=== PATIENT | male | born 1980 | race Caucasian/White ===

== ENCOUNTER 2017-12-22 21:37 | Emergency (ER) | payer OTHER ==
[2017-12-22 21:37] VITALS: BMI 31.1
[2017-12-22 21:54] VITALS: TEMP 98.1
[2017-12-22 23:03] LABS: BASO # 0.02 K/mm3 (0.0-2.0); BASO % 0.4 % (0.0-3.0); EOS # 0.1 (0.0-0.7); EOS % 1.2 % (1.5-5.0); GRAN # 2.9 (1.4-6.5); GRAN % 55.8 % (50.0-68.0); HEMOGLOBIN 14.9 g/dL (14.0-18.0); LYMPH # 1.7 (1.2-3.4); LYMPH % 31.8 % (22.0-35.0); MEAN CELL VOLUME 88.3 fl (80.0-105.0); MEAN CORPUSCULAR HEMOGLOBIN 31.2 pg (25.0-35.0); MEAN CORPUSCULAR HGB CONC 35.3 g/dl (31.0-37.0); MEAN PLATELET VOLUME 10.1 fl (7.0-11.0); MONO # 0.6 (0.1-0.6); MONO % 10.8 % (1.0-6.0); RBC 4.78 10^6/uL (3.5-6.1); RED CELL DISTRIBUTION WIDTH 13.3 % (11.5-14.5); WHITE BLOOD COUNT 5.2 10^3/ul (4.5-11.0)
[2017-12-22 23:12] LABS: ALB/GLOB RATIO 1.5 (1.1-1.8); ALBUMIN 3.9 g/dL (3.0-4.8); ALT/SGPT 74 U/L (7-56); AST/SGOT 38 U/L (17-59); BLOOD UREA NITROGEN 14 mg/dL (7-21); CALCIUM 9.3 mg/dL (8.4-10.5); GFR AFRICAN-AMERICAN > 60; GFR NON-AFRICAN AMERICAN > 60
[2017-12-22 23:23] LABS: TROPONIN I < 0.01 ng/mL
--- NOTE | 2017-12-22 23:35 | ED PDOC ---
Arrival/HPI - General Chief Complaint: Chest Pain Time Seen by Provider: 12/22/17 22:46 Historian: Patient - History of Present Illness Narrative History of Present Illness (Text): 12/22/17 23:30 37 y/o M w/ no significant PMH presents to the emergency department complaining of chest pain that began earlier today. He describes the pain as originating from the right shoulder radiating down to the right side of the sternum. The patient admits to driving 2 hours from [place] back home today. He also reports intermittent dizziness, but denies any fever, chills, shortness of breath, abdominal pain, nausea, vomiting, diarrhea, urinary symptoms, back pain , neck pain, headache, or any other complaints. He denies taking any medications for his symptoms. 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 Past Medical History - Provider Review Nursing Documentation Reviewed: Yes - Travel History Have you recently traveled outside [place] w/in the past 3 mons?: No - Past History Past History: No Previous - Infectious Disease Hx of Infectious Diseases: None - Tetanus Immunization Tetanus Immunization: Up to Date - Past Medical History Past Medical History: No Previous - Neurological Hx Seizures: Yes - Psychiatric Hx Psychophysiologic Disorder: No Hx Anxiety: No Hx Bipolar Disorder: No Hx Depression: No Hx Emotional Abuse: No Hx Hallucinations: No Hx Panic Disorder: No Hx Post Traumatic Stress Disorder: No Hx Psychosis: No Hx Physical Abuse: No Hx Schizophrenia: No Hx Sexual Abuse: No Hx Substance Use: No - Surgical History Hx Appendectomy: Yes - Anesthesia Hx Anesthesia: Yes Hx Anesthesia Reactions: No Hx Malignant Hyperthermia: No - Suicidal Assessment Feels Threatened In Home Enviroment: No Family/Social History - Physician Review Nursing Documentation Reviewed: Yes Family/Social History: No Known Family HX Smoking Status: Never Smoked Hx Alcohol Use: No Hx Substance Use: No Hx Substance Use Treatment: No Allergies/Home Meds Allergies/Adverse Reactions: Allergies No Known Allergies Allergy (Verified 01/26/16 09:42) Home Medications: Home Meds Medication Instructions Recorded Confirmed No Known Home Med 12/22/17 12/22/17 Review of Systems - Physician Review All systems were reviewed & negative as marked: Yes - Review of Systems Constitutional: absent: Fevers, Other (Chills) Respiratory: absent: SOB Cardiovascular: Chest Pain Gastrointestinal: absent: Abdominal Pain, Diarrhea, Nausea, Vomiting Musculoskeletal: Myalgias. absent: Back Pain, Neck Pain Neurological: Dizziness. absent: Headache Physical Exam Vital Signs Reviewed: Yes Vital Signs Temp Pulse Resp BP Pulse Ox 12/23/17 01:15 72 22 134/68 96 12/22/17 22:54 72 21 136/70 97 12/22/17 21:54 98.1 F 70 16 142/88 97 Temperature: Afebrile Blood Pressure: Normal Pulse: Regular Respiratory Rate: Normal Appearance: Positive for: Well-Appearing, Non-Toxic, Comfortable Pain Distress: None Mental Status: Positive for: Alert and Oriented X 3 - Systems Exam Head: Present: Atraumatic, Normocephalic Pupils: Present: PERRL Extroacular Muscles: Present: EOMI Conjunctiva: Present: Normal Mouth: Present: Moist Mucous Membranes Neck: Present: Normal Range of Motion Respiratory/Chest: Present: Clear to Auscultation, Good Air Exchange. No: Respiratory Distress, Accessory Muscle Use, Tender to Palpation (No tenderness of the anterior chest wall to palpation) Cardiovascular: Present: Regular Rate and Rhythm, Normal S1, S2. No: Murmurs Abdomen: No: Tenderness, Distention, Peritoneal Signs Back: Present: Normal Inspection. No: Midline Tenderness, Paraspinal Tenderness Upper Extremity: Present: Normal Inspection. No: Cyanosis, Edema Lower Extremity: Present: Normal Inspection. No: Edema Neurological: Present: GCS=15, CN II-XII Intact, Speech Normal Skin: Present: Warm, Dry, Normal Color. No: Rashes Psychiatric: Present: Alert, Oriented x 3, Normal Insight, Normal Concentration Medical Decision Making ED Course and Treatment: 12/22/17 23:30 Impression: 37 year old male presents complaining of chest pain that began earlier today localized to the right shoulder which radiates down to the side of the chest. Patient also reports intermittent dizziness. HEART Score: 0 PERC Rule: Negative Differential Diagnosis Includes But is not Limited to: ACS PE Costochondritis Plan: -- Labs -- EKG -- Chest X-Ray -- Reassess and disposition Progress Notes: EKG Ordered, read & interpreted by ED provider Impression: NSR at [address] elevation. No T-Wave inversions. CXR Impression: Ordered, read & interpreted by ED provider Impression: No infilitrates or consolidations. No PTX. No cardiomegaly seen. 12/23/17 01:10 Labs reviewed. Troponin negative. On re-evaluation, patient feels better and is in no acute distress. I have discussed the results and plan with the patient, who expresses understanding. Patient in agreement with plan to be discharged home. Patient is stable for discharge. Patient was instructed to follow up with physician or return if symptoms worsen or new concerning symptoms arise. - Lab Interpretations Lab Results: 12/22/17 22:00 12/22/17 22:00 Lab Results 12/22/17 22:00: NT-Pro-B Natriuret Pep 15.0 12/22/17 22:00: Sodium 141, Potassium 3.8, Chloride 107, Carbon Dioxide 21, Anion Gap 16, BUN 14, Creatinine 0.8, Est GFR ( Amer) > 60, Est GFR (Non- Af Amer) > 60, Random Glucose 141 H, Calcium 9.3, Total Bilirubin 0.4, AST 38, ALT 74 H, Alkaline Phosphatase 72, Troponin I < 0.01, Total Protein 6.5, Albumin 3.9, Globulin 2.6, Albumin/Globulin Ratio 1.5 12/22/17 22:00: WBC 5.2 D, RBC 4.78, Hgb 14.9, Hct 42.2, MCV 88.3, MCH 31.2, MCHC 35.3, RDW 13.3, Plt Count 220, MPV 10.1, Gran % 55.8, Lymph % (Auto) 31.8, [place] % (Auto) 10.8 H, Eos % (Auto) 1.2 L, Baso % (Auto) 0.4, Gran # 2.90, Lymph # (Auto) 1.7, [place] # (Auto) 0.6, Eos # (Auto) 0.1, Baso # (Auto) 0.02 I have reviewed the lab results: Yes - RAD Interpretation Radiology Orders: 12/22/17 22:46 CHEST TWO VIEWS (PA/LAT) [RAD] Stat - EKG Interpretation Interpreted by ED Physician: Yes Type: 12 lead EKG - Medication Orders Current Medication Orders: Discontinued Medications Diazepam (Valium) 5 mg PO ONCE ONE PRN Reason: Protocol Stop: 12/23/17 00:24 Last Admin: 12/23/17 01:08 Dose: 5 mg Ketorolac Tromethamine (Toradol) 30 mg IVP STAT STA Stop: 12/23/17 00:22 Last Admin: 12/23/17 01:08 Dose: 30 mg MAR Pain Assessment Document 12/23/17 01:08 MANDIE (Rec: 12/23/17 01:08 [id number] Pain Reassessment Is this a pain reassessment? No Sleep Is patient sleeping during reassessment? No Presence of Pain Presence of Pain No Pain Scale Used Pain Scale Used Numeric Location Pain Location Body Site Chest Description Description Acute Intensity of Pain at present 7 Acceptable Level of Pain 0 Pain Behavior Rubbing Site Aggravating Factors ADL's IVP Administration Document 12/23/17 01:08 MANDIE (Rec: 12/23/17 01:08 [id number] Charges for Administration # of IVP Administrations 1 - Scribe Statement The provider has reviewed the documentation as recorded by the Scribe Pia Saba Provider Scribe Attestation: All medical record entries made by the Scribe were at my direction and personally dictated by me. I have reviewed the chart and agree that the record accurately reflects my personal performance of the history, physical exam, medical decision making, and the department course for this patient. I have also personally directed, reviewed, and agree with the discharge instructions and disposition. Disposition/Present on Arrival - Present on Arrival Any Indicators Present on Arrival: No History of DVT/PE: No History of Uncontrolled Diabetes: No Urinary Catheter: No History of Decub. Ulcer: No History Surgical Site Infection Following: None - Disposition Have Diagnosis and Disposition been Completed?: Yes Diagnosis: Musculoskeletal pain Disposition: HOME/ ROUTINE Disposition Time: 00:58 Patient Plan: Discharge Condition: STABLE Discharge Instructions (ExitCare): Muscle and Bone Pain (DC) Referrals: Hayder Belcher MD [Primary Care Provider] - Follow up with primary Forms: [employer] (Nepalese)
[2017-12-23 01:59] VITALS: PULSE 72
[2017-12-23 02:00] VITALS: BP 134/68; RESP 22; O2SAT 96
--- NOTE | 2017-12-23 10:25 | RAD ---
HISTORY: COMPARISON: 04/14/2016. TECHNIQUE: Chest PA and lateral FINDINGS: LINES AND TUBES: None. LUNG AND PLEURA: Low lung volumes may be related to poor inspiratory effort.No focal consolidation. No pleural effusion or pneumothorax. HEART AND MEDIASTINUM: The heart is not enlarged. The hilar and mediastinal contours are within normal limits. SKELETAL STRUCTURES: The bony structures are within normal limits for the patient's age. VISUALIZED UPPER ABDOMEN: Normal. OTHER FINDINGS: None. IMPRESSION: No active pulmonary disease.
--- NOTE | 2017-12-23 17:52 | CARD ---
APPROVED REPORT Date of service: 12/22/2017 EKG Measurement Heart [id number] <Conclusion> Normal sinus rhythm Voltage criteria for left ventricular hypertrophy Abnormal ECG
== END 2017-12-23 01:15 | disposition home or self-care (01) ==
LOC: ED 21:37
DX: M79.1 Myalgia (principal)
CPT/HCPCS: 71046; 80053; 83880; 84484; 85025; 93005; 96374; 99284; J1885

== ENCOUNTER 2018-09-22 10:09 | Emergency (ER) | payer OTHER ==
[2018-09-22 10:24] VITALS: RESP 18; TEMP 98.4; BMI 33.9
[2018-09-22] MEDS ORDERED: Sodium Chloride 0.9% 1,000 ML IV STA (10:38)
[2018-09-22] MEDS ORDERED: Famotidine 20mg/50ml 20 MG in Premixed IV 50 EA IVPB STA (10:38)
--- NOTE | 2018-09-22 10:40 | ED PDOC ---
Arrival/HPI - General Chief Complaint: GI Problem Time Seen by Provider: 09/22/18 10:17 Historian: Patient - History of Present Illness Narrative History of Present Illness (Text): 09/22/18 10:37 A 38 year old male, who denies any significant past medical history, presents to the emergency department with a complaint of 2 day duration diarrhea. Patient notes that he had about 8 episodes of diarrhea yesterday. He reports associated epigastric pain. He also notes decreased appetite. Patient has been drinking Gatorade. Patient denies any recent travel, sick contacts, fevers, chills, headache, dizziness, chest pain, shortness of breath, dyspnea on exertion, cough, nausea, vomiting, back pain, neck pain, urinary changes, or any other complaint. Time/Duration: Other (2 days) Symptom Onset: Sudden Symptom Course: Unchanged Activities at Onset: Rest, Light Context: Home Past Medical History - Provider Review Nursing Documentation Reviewed: Yes - Past History Past History: No Previous - Infectious Disease Hx of Infectious Diseases: None - Tetanus Immunization Tetanus Immunization: Up to Date - Past Medical History Past Medical History: No Previous - Neurological Hx Seizures: Yes - Psychiatric Hx Psychophysiologic Disorder: No Hx Anxiety: No Hx Bipolar Disorder: No Hx Depression: No Hx Emotional Abuse: No Hx Hallucinations: No Hx Panic Disorder: No Hx Post Traumatic Stress Disorder: No Hx Psychosis: No Hx Physical Abuse: No Hx Schizophrenia: No Hx Sexual Abuse: No Hx Substance Use: No - Surgical History Hx Appendectomy: Yes - Anesthesia Hx Anesthesia: Yes Hx Anesthesia Reactions: No Hx Malignant Hyperthermia: No - Suicidal Assessment Feels Threatened In Home Enviroment: No Family/Social History - Physician Review Nursing Documentation Reviewed: Yes Family/Social History: No Known Family HX Smoking Status: Never Smoked Hx Alcohol Use: Yes Frequency of alcohol use: Socially Hx Substance Use: No Hx Substance Use Treatment: No Allergies/Home Meds Allergies/Adverse Reactions: Allergies No Known Allergies Allergy (Verified 01/26/16 09:42) Home Medications: Home Meds Medication Instructions Recorded Confirmed No Known Home Med 12/22/17 09/22/18 Review of Systems - Physician Review All systems were reviewed & negative as marked: Yes - Review of Systems Constitutional: absent: Fevers Respiratory: absent: SOB, Cough Cardiovascular: absent: Chest Pain, HOGAN Gastrointestinal: Abdominal Pain, Diarrhea. absent: Nausea, Vomiting Genitourinary Male: absent: Urinary Output Changes Musculoskeletal: absent: Back Pain, Neck Pain Neurological: absent: Headache, Dizziness Physical Exam Vital Signs Reviewed: Yes Vital Signs Temp Pulse Resp BP Pulse Ox 09/22/18 10:10 98.4 F 69 18 131/81 98 Temperature: Afebrile Blood Pressure: Normal Pulse: Regular Respiratory Rate: Normal Appearance: Positive for: Well-Appearing, Non-Toxic, Comfortable Pain Distress: None Mental Status: Positive for: Alert and Oriented X 3 - Systems Exam Head: Present: Atraumatic, Normocephalic Pupils: Present: PERRL Extroacular Muscles: Present: EOMI Conjunctiva: Present: Normal Mouth: Present: Moist Mucous Membranes Neck: Present: Normal Range of Motion Respiratory/Chest: Present: Clear to Auscultation, Good Air Exchange. No: Respiratory Distress, Accessory Muscle Use Cardiovascular: Present: Regular Rate and Rhythm, Normal S1, S2. No: Murmurs Abdomen: Present: Tenderness (Epigastric tenderness). No: Distention, Peritoneal Signs Back: Present: Normal Inspection Upper Extremity: Present: Normal Inspection. No: Cyanosis, Edema Lower Extremity: Present: Normal Inspection. No: Edema Neurological: Present: GCS=15, CN II-XII Intact, Speech Normal Skin: Present: Warm, Dry, Normal Color. No: Rashes Psychiatric: Present: Alert, Oriented x 3, Normal Insight, Normal Concentration Medical Decision Making ED Course and Treatment: 09/22/18 10:41 Impression: A 38 year old male presents to the emergency department with a complaint of 2 day duration diarrhea with associated epigastric abdominal pain. Differential Diagnosis included but are not limited to: Plan: -- Labs -- Pepcid, Zofran, and IV Fluids -- Reassess and disposition Prior Visits: Notes and results from previous visits were reviewed. Progress Notes: On re-evaluation, patient feels better and is in no acute distress. I have discussed the results and plan with the patient, who expresses understanding. Patient in agreement with plan to be discharged home. Patient is stable for discharge. Patient was instructed to follow up with physician or return if symptoms worsen or new concerning symptoms arise. - Lab Interpretations I have reviewed the lab results: Yes - Scribe Statement The provider has reviewed the documentation as recorded by the Dameon Fuentes Provider Scribe Attestation: All medical record entries made by the Scribe were at my direction and personally dictated by me. I have reviewed the chart and agree that the record accurately reflects my personal performance of the history, physical exam, medical decision making, and the department course for this patient. I have also personally directed, reviewed, and agree with the discharge instructions and disposition. Disposition/Present on Arrival - Present on Arrival Any Indicators Present on Arrival: No History of DVT/PE: No History of Uncontrolled Diabetes: No Urinary Catheter: No History of Decub. Ulcer: No History Surgical Site Infection Following: None - Disposition Have Diagnosis and Disposition been Completed?: Yes Diagnosis: Enteritis Disposition: HOME/ ROUTINE Disposition Time: 12:16 Condition: GOOD Discharge Instructions (ExitCare): Diarrhea in Adolescents and Adults Additional Instructions: We recommend bland diet until the diarrhea resolved. Encourage toast, rice, chicken, juice, banana. Referrals: Hayder Belcher MD [Primary Care Provider] - Follow up with primary Forms: [facility] ([place]se), WORK NOTE
[2018-09-22 11:14] LABS: EOS % 0.5 % (1.5-5.0); LYMPH % 40.3 % (22.0-35.0); MEAN CELL VOLUME 88.8 fl (80.0-105.0); MEAN CORPUSCULAR HEMOGLOBIN 30.3 pg (25.0-35.0); MEAN CORPUSCULAR HGB CONC 34.1 g/dl (31.0-37.0); MEAN PLATELET VOLUME 9.9 fl (7.0-11.0); MONO % 25.6 % (1.0-6.0); PLATELET COUNT 201 10^3/uL (120.0-450.0); RBC 5.28 10^6/uL (3.5-6.1); RED CELL DISTRIBUTION WIDTH 12.8 % (11.5-14.5); WHITE BLOOD COUNT 2.1 10^3/uL (4.5-11.0)
[2018-09-22 11:15] LABS: LYMPH # 0.9 (1.2-3.4); MONO # 0.5 (0.1-0.6)
[2018-09-22 11:35] LABS: ALB/GLOB RATIO 1.4 (1.1-1.8); ALBUMIN 4.2 g/dL (3.0-4.8); ALT/SGPT 77 U/L (7-56); AST/SGOT 45 U/L (17-59); BLOOD UREA NITROGEN 13 mg/dL (7-21); CALCIUM 9.2 mg/dL (8.4-10.5); GFR NON-AFRICAN AMERICAN > 60
[2018-09-22 11:51] LABS: LYMPHOCYTE 48 % (22.0-35.0); MONOCYTE 21 % (1.0-6.0); NEUTROPHIL 31 % (50.0-70.0); PLATELET ESTIMATE NORMAL (NORMAL)
[2018-09-22] MEDS ORDERED: Atropine-Diphenoxylate 0.025-2.5 mg Tab PO STA (11:52)
[2018-09-22 12:12] VITALS: BP 153/88; PULSE 153; O2SAT 99
== END 2018-09-22 12:16 | disposition home or self-care (01) ==
LOC: ED 10:09
DX: K52.9 Noninfective gastroenteritis and colitis, unspecified (principal)
CPT/HCPCS: 80053; 85025; 96374; 96375; 99283; J2405; J7030